=== PATIENT | male | born 1995 | race African-American/Black ===

== ENCOUNTER 2019-03-08 02:38 | Inpatient (IN) | payer OTHER ==
[2019-03-08] MEDS: SODIUM CHLORIDE 0.9% 1L BAG IV* (03:12)
[2019-03-08 03:17] LABS: ADD MAN DIFF? NO
[2019-03-08 03:19] LABS: ABNORMAL IP MESSAGE 1; BASOPHIL # 0.1 10^3/ul (0.0-0.1); BASOPHILS % 0.9 % (0.0-2.0); EOSINOPHILS # 0.2 10^3/ul (0.0-0.5); EOSINOPHILS % 1.1 % (0.0-7.0); HEMATOCRIT 36.2 % (42.0-52.0); HEMOGLOBIN 11.6 g/dl (14.0-18.0); LYMPHOCYTES # 2.5 10^3/ul (0.8-2.9); LYMPHOCYTES % 16.3 % (15.0-51.0); MEAN CORPUSCULAR HEMOGLOBIN 29.6 pg (29.0-33.0); MEAN CORPUSCULAR VOLUME 92.3 fl (82.0-101.0); MEAN PLATELET VOLUME 10.2 fl (7.4-10.4); MONOCYTE # 1.6 10^3/ul (0.3-0.9); MONOCYTES % 10.2 % (0.0-11.0); NEUTROPHIL # 10.7 10^3/ul (1.6-7.5); NEUTROPHILS % 70.7 % (39.0-77.0); PLATELET COUNT 429 10^3/UL (140-415); POSITIVE DIFF @See below; RED BLOOD COUNT 3.92 10^6/ul (4.70-6.10); RED CELL DISTRIBUTION WIDTH 15.5 % (11.5-14.5)
[2019-03-08 03:19] LABS: WHITE BLOOD COUNT 15.2 10^3/ul (4.8-10.8)
[2019-03-08] MEDS: ACETAMINOPHEN 650 MG SUPP PR (03:20)
[2019-03-08] MEDS: CEFEPIME 1GM/50 ML (PMX) 50 ML IVPB (03:20)
[2019-03-08 03:48] LABS: ALANINE AMINOTRANSFERASE 35 IU/L (13-69); ALBUMIN 4.1 g/dl (3.3-4.9); ALBUMIN/GLOBULIN RATIO 0.69; ALKALINE PHOSPHATASE 101 IU/L (42-121); ANION GAP 11 (5-13); ASPARTATE AMINO TRANSFERASE 34 IU/L (15-46); BILIRUBIN,INDIRECT 0.3 mg/dl (0-1.1); BILIRUBIN,TOTAL 0.3 mg/dl (0.2-1.3); BLOOD UREA NITROGEN 20 mg/dl (7-20); C-REACTIVE PROTEIN 2.9 mg/dl (0.0-0.9); CALCIUM 9.1 mg/dl (8.4-10.2); CARBON DIOXIDE 26 mmol/L (21-31); CHLORIDE 103 mmol/L (97-110); CREATININE 0.74 mg/dl (0.61-1.24); Estimated GFR > 60 mL/min (>60); GLUCOSE 126 mg/dl (70-220); LIPASE 16 U/L (23-300); POTASSIUM 4.8 mmol/L (3.5-5.1); SODIUM 140 mmol/L (135-144)
[2019-03-08 03:57] LABS: TROPONIN-I < 0.012 ng/ml (0.000-0.120)
[2019-03-08] MEDS ORDERED: NACL 0.9% 3 ML SYG IV (04:30)
[2019-03-08] MEDS ORDERED: ONDANSETRON 4 MG INJ IV (04:30)
[2019-03-08] MEDS: LACTATED RINGER'S 1,000 ML IV (04:43)
[2019-03-08] MEDS: SOD CHLORIDE 0.9% 1,000 ML IV ×3 (04:44→14:26)
[2019-03-08] MEDS: AZITHROMYCIN 500MG/NS (PMX) 250 ML IVPB (05:07)
[2019-03-08 05:10] LABS: INR 1.29; PROTIME 16.2 Sec (11.9-14.9); PT RATIO 1.3
[2019-03-08 05:11] LABS: PARTIAL THROMBOPLASTIN TIME 33.9 Sec (23.0-35.0)
[2019-03-08 05:20] LABS: AADO2 Arterial 558.6 mmHg (7.0-24.0); Arterial Base Excess -2.6 mmol/L (-3.0-3); Arterial Blood Gas Oxygen Sat 97.9 mmHG (95.0-98.0); Arterial COHb 0.3 % (0.0-3.0); Arterial Fraction of Oxyhgb 97.3 % (93.0-99.0); Arterial HCO3 22.1 mmol/L (22.0-26.0); Arterial MetHb 0.3 % (0.0-1.5); Arterial pCO2 37.5 mmhg (35-45); MODE VENT - AC; Site Right Brachial
[2019-03-08 06:07] LABS: ADD UMIC YES; UR ASCORBIC ACID 40 mg/dL (NEGATIVE); UR BACTERIA FEW /HPF (NONE SEEN); UR BILIRUBIN (Dip) NEGATIVE (NEGATIVE); UR BLOOD (Dip) NEGATIVE (NEGATIVE); UR CLARITY CLOUDY (CLEAR); UR COLOR YELLOW (YELLOW); UR GLUCOSE (Dip) NEGATIVE (NEGATIVE); UR KETONES (Dip) NEGATIVE (NEGATIVE); UR LEUKOCYTE ESTERASE (Dip) 3+ Leu/ul (NEGATIVE); UR MUCUS FEW /HPF (NONE SEEN); UR NITRITE (Dip) NEGATIVE (NEGATIVE); UR RBC 22 /HPF (0-5); UR SPECIFIC GRAVITY (Dip) 1.023 (1.003-1.030); UR TOTAL PROTEIN (Dip) NEGATIVE (NEGATIVE); UR UROBILINOGEN (Dip) NEGATIVE (NEGATIVE); UR WBC > 182 /HPF (0-5)
[2019-03-08 06:26] LABS: LACTIC ACID 1.9 mmol/L (0.5-2.0)
[2019-03-08] MEDS: FAMOTIDINE 20 MG INJ IV ×2 (08:40→21:27)
[2019-03-08] MEDS: ENOXAPARIN 40 MG/0.4 ML SYG SC (08:40)
[2019-03-08 09:12] LABS: LACTIC ACID 1.4 mmol/L (0.5-2.0)
[2019-03-08] MEDS ORDERED: IPRATROPIUM (NEB) 0.5 MG/2.5 ML AMP NEB (13:00)
[2019-03-08] MEDS: ALBUTEROL/IPRATROPIUM (NEB) 3 ML AMP HHN ×3 (13:00→19:27)
[2019-03-08] MEDS: NACL 3% FOR INHALATION 15 ML NEBU NEB (13:00)
[2019-03-08] MEDS ORDERED: VANCOMYCIN IV PER PHARMACY XX (13:00)
[2019-03-08] MEDS: DEXTROSE 5%-0.225% NACL 1,000 ML IV ×2 (13:30→21:27)
[2019-03-08] MEDS: metroNIDAZOLE 500 MG TAB GTB ×2 (14:26→21:26)
[2019-03-08] MEDS: PIPER-TAZO 3.375 GM IV (PMX) 100 ML IVPB ×3 (14:36→23:32)
[2019-03-08] MEDS ORDERED: LORAZEPAM 2 MG INJ (15:22)
[2019-03-08] MEDS: VANCOMYCIN HCL 1.25 GM in SOD CHLORIDE 0.9% 250 ML IVPB (15:40)
[2019-03-08] MEDS: LORAZEPAM 2 MG INJ IV ×2 (15:42→15:53)
[2019-03-08 16:35] LABS: AADO2 Arterial 511.5 mmHg (7.0-24.0); Allen Test ACCEPTAB; Arterial Base Excess 0.2 mmol/L (-3.0-3); Arterial Blood Gas Oxygen Sat 90.4 mmHG (95.0-98.0); Arterial COHb 0.3 % (0.0-3.0); Arterial Fraction of Oxyhgb 89.9 % (93.0-99.0); Arterial HCO3 23.5 mmol/L (22.0-26.0); Arterial MetHb 0.3 % (0.0-1.5); Arterial pCO2 33.3 mmhg (35-45); MODE VENT - AC; Site Left Radial
[2019-03-08] MEDS: ARTIFICIAL TEARS 15 ML OPH BOTH EYES ×2 (17:00→21:26)
[2019-03-08] MEDS: MIDAZOLAM (DRIP) 50 mg/50 mL 50 ML IV (17:19)
[2019-03-08] MEDS: ACETYLCYSTEINE 20% 4 ML VIAL NEB ×2 (17:25→19:27)
[2019-03-08] MEDS: LIDOCAINE 1% (MPF) 5 ML VIAL SC ×2 (18:25)
[2019-03-08] MEDS: ALBUTEROL 0.083% (NEB) 2.5 MG/3 ML AMP HHN (19:27)
[2019-03-08] MEDS: VALPROIC ACID LIQUID CUP 250 MG/5 ML CUP GTB (21:26)
[2019-03-08] MEDS: LEVETIRACETAM 500 MG TAB GTB (21:27)
[2019-03-08] MEDS: ASCORBIC ACID 500 MG TAB GTB (21:27)
[2019-03-08] MEDS: VANCOMYCIN 1 GM 250 ML IVPB (23:32)
[2019-03-09] MEDS: ACETYLCYSTEINE 20% 4 ML VIAL NEB ×4 (01:12→19:58)
[2019-03-09] MEDS: ALBUTEROL 0.083% (NEB) 2.5 MG/3 ML AMP HHN (01:12)
[2019-03-09] MEDS: ALBUTEROL/IPRATROPIUM (NEB) 3 ML AMP HHN ×6 (01:12→19:58)
[2019-03-09 04:56] LABS: ADD MAN DIFF? NO
[2019-03-09] MEDS: metroNIDAZOLE 500 MG TAB GTB (05:13)
[2019-03-09] MEDS: PIPER-TAZO 3.375 GM IV (PMX) 100 ML IVPB ×4 (05:14→23:00)
[2019-03-09 05:30] LABS: ANION GAP 8 (5-13); BLOOD UREA NITROGEN 14 mg/dl (7-20); CALCIUM 8.1 mg/dl (8.4-10.2); CARBON DIOXIDE 23 mmol/L (21-31); CHLORIDE 109 mmol/L (97-110); CREATININE 0.66 mg/dl (0.61-1.24); Estimated GFR > 60 mL/min (>60); GLUCOSE 99 mg/dl (70-220); PHOSPHORUS 3.4 mg/dl (2.5-4.9); POTASSIUM 4.1 mmol/L (3.5-5.1); SODIUM 140 mmol/L (135-144)
[2019-03-09 05:31] LABS: ALANINE AMINOTRANSFERASE 25 IU/L (13-69); ALBUMIN/GLOBULIN RATIO 0.65; ALKALINE PHOSPHATASE 70 IU/L (42-121); ANION GAP 10 (5-13); ASPARTATE AMINO TRANSFERASE 20 IU/L (15-46); BILIRUBIN,INDIRECT 0.5 mg/dl (0-1.1); BILIRUBIN,TOTAL 0.5 mg/dl (0.2-1.3); BLOOD UREA NITROGEN 13 mg/dl (7-20); CALCIUM 8.3 mg/dl (8.4-10.2); CARBON DIOXIDE 22 mmol/L (21-31); CHLORIDE 108 mmol/L (97-110); CHOLESTEROL 60 mg/dl (100-200); CREATININE 0.67 mg/dl (0.61-1.24); Estimated GFR > 60 mL/min (>60); GLUCOSE 103 mg/dl (70-220); HDL CHOLESTEROL 12 mg/dl (30-63); LDL CHOLESTEROL,CALCULATED 30 mg/dl; MAGNESIUM 1.9 mg/dl (1.7-2.5); POTASSIUM 3.8 mmol/L (3.5-5.1); SODIUM 140 mmol/L (135-144); TOTAL PROTEIN 7.6 g/dl (6.1-8.1); TRIGLYCERIDES 91 mg/dl (0-149)
[2019-03-09 05:33] LABS: VALPROATE 15 ug/ml (50-100)
[2019-03-09 05:59] LABS: THYROID STIMULATING HORMONE 0.465 MIU/L (0.465-4.680)
[2019-03-09] MEDS: VANCOMYCIN 1 GM 250 ML IVPB ×3 (06:18→22:59)
[2019-03-09 06:19] LABS: ADD MAN DIFF? NO
[2019-03-09] MEDS: MIDAZOLAM (DRIP) 50 mg/50 mL 50 ML IV (06:26)
[2019-03-09 06:39] LABS: WHITE BLOOD COUNT 8.8 10^3/ul (4.8-10.8)
[2019-03-09 06:39] LABS: BASOPHIL # 0.1 10^3/ul (0.0-0.1); BASOPHILS % 0.9 % (0.0-2.0); EOSINOPHILS # 0.4 10^3/ul (0.0-0.5); EOSINOPHILS % 4.5 % (0.0-7.0); HEMATOCRIT 25.3 % (42.0-52.0); HEMOGLOBIN 8.4 g/dl (14.0-18.0); LYMPHOCYTES # 1.7 10^3/ul (0.8-2.9); LYMPHOCYTES % 19.8 % (15.0-51.0); MEAN CORPUSCULAR HEMOGLOBIN 30.2 pg (29.0-33.0); MEAN CORPUSCULAR HGB CONC 33.2 g/dl (32.0-37.0); MEAN PLATELET VOLUME 10.5 fl (7.4-10.4); MONOCYTE # 0.9 10^3/ul (0.3-0.9); MONOCYTES % 9.9 % (0.0-11.0); NEUTROPHIL # 5.7 10^3/ul (1.6-7.5); NEUTROPHILS % 64.4 % (39.0-77.0); PLATELET COUNT 301 10^3/UL (140-415); RED BLOOD COUNT 2.78 10^6/ul (4.70-6.10); RED CELL DISTRIBUTION WIDTH 15.3 % (11.5-14.5)
[2019-03-09 07:46] LABS: AADO2 Arterial 629.5 mmHg (7.0-24.0); Allen Test ACCEPTAB; Arterial Base Excess -1.6 mmol/L (-3.0-3); Arterial Blood Gas Oxygen Sat 89.4 mmHG (95.0-98.0); Arterial COHb 0.3 % (0.0-3.0); Arterial HCO3 21.1 mmol/L (22.0-26.0); Arterial MetHb 0.2 % (0.0-1.5); Arterial pCO2 28.1 mmhg (35-45); MODE VENT - AC; Site Right Radial
[2019-03-09] MEDS: ACETAMINOPHEN 650 MG SUPP PR (08:05)
[2019-03-09] MEDS: LEVETIRACETAM 500 MG TAB GTB (08:17)
[2019-03-09] MEDS: VALPROIC ACID LIQUID CUP 250 MG/5 ML CUP GTB (08:18)
[2019-03-09] MEDS: ASCORBIC ACID 500 MG TAB GTB (09:00)
[2019-03-09] MEDS: CHOLECALCIFEROL 2,000 UNIT CAP GTB (09:00)
[2019-03-09] MEDS: ENOXAPARIN 40 MG/0.4 ML SYG SC (09:00)
[2019-03-09] MEDS: MULTIVITAMINS/MINERALS TAB GTB (09:00)
[2019-03-09] MEDS: FAMOTIDINE 20 MG INJ IV ×2 (09:00→21:04)
[2019-03-09] MEDS: LORAZEPAM 2 MG INJ IV ×5 (09:40→18:03)
[2019-03-09 10:09] LABS: BASOPHIL # 0.1 10^3/ul (0.0-0.1); BASOPHILS % 0.6 % (0.0-2.0); EOSINOPHILS # 0.3 10^3/ul (0.0-0.5); EOSINOPHILS % 3.6 % (0.0-7.0); HEMATOCRIT 24.9 % (42.0-52.0); HEMOGLOBIN 7.9 g/dl (14.0-18.0); LYMPHOCYTES # 1.8 10^3/ul (0.8-2.9); LYMPHOCYTES % 20.5 % (15.0-51.0); MEAN CORPUSCULAR HEMOGLOBIN 29.4 pg (29.0-33.0); MEAN CORPUSCULAR HGB CONC 31.7 g/dl (32.0-37.0); MEAN CORPUSCULAR VOLUME 92.6 fl (82.0-101.0); MEAN PLATELET VOLUME 10.8 fl (7.4-10.4); MONOCYTE # 0.8 10^3/ul (0.3-0.9); MONOCYTES % 8.9 % (0.0-11.0); NEUTROPHIL # 5.9 10^3/ul (1.6-7.5); NEUTROPHILS % 66.1 % (39.0-77.0); PLATELET COUNT 294 10^3/UL (140-415); RED BLOOD COUNT 2.69 10^6/ul (4.70-6.10); RED CELL DISTRIBUTION WIDTH 15.6 % (11.5-14.5)
[2019-03-09] MEDS: ARTIFICIAL TEARS 15 ML OPH BOTH EYES ×4 (10:58→21:04)
[2019-03-09] MEDS: LEVETIRACETAM 1500 MG (PMX) 100 ML IVPB ×2 (12:12→21:07)
[2019-03-09] MEDS: VALPROATE INJ 1,000 MG in SOD CHLORIDE 0.9% 100 ML IVPB ×2 (14:32→21:11)
[2019-03-09 15:02] LABS: VALPROATE 16 ug/ml (50-100)
[2019-03-09 15:03] LABS: VANCOMYCIN,TROUGH 16.4 ug/ml (10.0-20.0)
[2019-03-09] MEDS: VALPROATE INJ 125 MG in SOD CHLORIDE 0.9% 50 ML IVPB ×2 (15:35→21:04)
[2019-03-09] MEDS: DEXTROSE 5%-0.225% NACL 1,000 ML IV (15:38)
[2019-03-09] MEDS: LORAZEPAM 1 MG TAB PO (18:04)
[2019-03-09] MEDS: LORAZEPAM 2 MG INJ IM (18:32)
[2019-03-09 18:58] LABS: VALPROATE 38 ug/ml (50-100)
[2019-03-09] MEDS ORDERED: LEVETIRACETAM 1000 MG (PMX) 100 ML IVPB (21:00)
[2019-03-10] MEDS: ALBUTEROL/IPRATROPIUM (NEB) 3 ML AMP HHN ×6 (01:13→21:11)
[2019-03-10] MEDS: ACETYLCYSTEINE 20% 4 ML VIAL NEB ×3 (01:13→13:12)
[2019-03-10] MEDS: DEXTROSE 5%-0.225% NACL 1,000 ML IV ×3 (03:47→21:43)
[2019-03-10 05:18] LABS: ADD MAN DIFF? NO
[2019-03-10 05:23] LABS: WHITE BLOOD COUNT 11.3 10^3/ul (4.8-10.8)
[2019-03-10 05:23] LABS: BASOPHIL # 0.1 10^3/ul (0.0-0.1); BASOPHILS % 0.5 % (0.0-2.0); EOSINOPHILS # 0.3 10^3/ul (0.0-0.5); EOSINOPHILS % 2.4 % (0.0-7.0); HEMOGLOBIN 7.2 g/dl (14.0-18.0); LYMPHOCYTES # 1.6 10^3/ul (0.8-2.9); LYMPHOCYTES % 13.8 % (15.0-51.0); MEAN CORPUSCULAR HEMOGLOBIN 30.1 pg (29.0-33.0); MEAN CORPUSCULAR HGB CONC 32.7 g/dl (32.0-37.0); MEAN CORPUSCULAR VOLUME 92.1 fl (82.0-101.0); MEAN PLATELET VOLUME 10.8 fl (7.4-10.4); MONOCYTE # 1.2 10^3/ul (0.3-0.9); MONOCYTES % 10.8 % (0.0-11.0); NEUTROPHIL # 8.1 10^3/ul (1.6-7.5); NEUTROPHILS % 72.1 % (39.0-77.0); PLATELET COUNT 237 10^3/UL (140-415); RED BLOOD COUNT 2.39 10^6/ul (4.70-6.10); RED CELL DISTRIBUTION WIDTH 15.2 % (11.5-14.5)
[2019-03-10 05:41] LABS: ANION GAP 9 (5-13); BLOOD UREA NITROGEN 7 mg/dl (7-20); CALCIUM 8.1 mg/dl (8.4-10.2); CARBON DIOXIDE 22 mmol/L (21-31); CHLORIDE 111 mmol/L (97-110); CREATININE 0.66 mg/dl (0.61-1.24); Estimated GFR > 60 mL/min (>60); GLUCOSE 113 mg/dl (70-220); MAGNESIUM 1.9 mg/dl (1.7-2.5); PHOSPHORUS 3.7 mg/dl (2.5-4.9); POTASSIUM 3.7 mmol/L (3.5-5.1); SODIUM 142 mmol/L (135-144)
[2019-03-10 05:45] LABS: VALPROATE 59 ug/ml (50-100)
[2019-03-10] MEDS: VALPROATE INJ 125 MG in SOD CHLORIDE 0.9% 50 ML IVPB ×3 (06:04→21:32)
[2019-03-10] MEDS: PIPER-TAZO 3.375 GM IV (PMX) 100 ML IVPB ×4 (06:04→23:41)
[2019-03-10] MEDS: VANCOMYCIN 1 GM 250 ML IVPB ×3 (06:05→22:52)
[2019-03-10] MEDS: ARTIFICIAL TEARS 15 ML OPH BOTH EYES ×4 (09:47→20:24)
[2019-03-10] MEDS: FAMOTIDINE 20 MG INJ IV ×2 (09:47→20:24)
[2019-03-10] MEDS: SOD CHLORIDE 0.9% 1,000 ML IV (09:47)
[2019-03-10] MEDS: LEVETIRACETAM 1000 MG (PMX) 100 ML IVPB ×2 (09:51→20:32)
[2019-03-10] MEDS: ENOXAPARIN 40 MG/0.4 ML SYG SC (09:54)
[2019-03-10] MEDS: LORAZEPAM 2 MG INJ IV ×2 (10:21→11:30)
[2019-03-10] MEDS: VALPROATE INJ 1,000 MG in SOD CHLORIDE 0.9% 100 ML IVPB (10:29)
[2019-03-10] MEDS ORDERED: LORAZEPAM 2 MG INJ IV (11:00)
[2019-03-11] MEDS: IPRATROPIUM (HFA) 12.9 GM INHALER INH ×6 (01:03→21:22)
[2019-03-11] MEDS: ALBUTEROL HFA 8 GM INHALER INH ×6 (01:03→21:23)
[2019-03-11] MEDS: VALPROATE INJ 125 MG in SOD CHLORIDE 0.9% 50 ML IVPB (05:29)
[2019-03-11] MEDS: PIPER-TAZO 3.375 GM IV (PMX) 100 ML IVPB (05:30)
[2019-03-11 05:52] LABS: ADD MAN DIFF? NO
[2019-03-11 06:03] LABS: WHITE BLOOD COUNT 8.7 10^3/ul (4.8-10.8)
[2019-03-11 06:03] LABS: ABNORMAL IP MESSAGE 1; BASOPHILS % 0.5 % (0.0-2.0); EOSINOPHILS # 0.3 10^3/ul (0.0-0.5); LYMPHOCYTES # 1.4 10^3/ul (0.8-2.9); LYMPHOCYTES % 16.3 % (15.0-51.0); MEAN CORPUSCULAR HEMOGLOBIN 30.2 pg (29.0-33.0); MEAN CORPUSCULAR HGB CONC 32.4 g/dl (32.0-37.0); MEAN CORPUSCULAR VOLUME 93.3 fl (82.0-101.0); MEAN PLATELET VOLUME 10.9 fl (7.4-10.4); MONOCYTES % 10.9 % (0.0-11.0); PLATELET COUNT 234 10^3/UL (140-415); POSITIVE DIFF @See below; RED BLOOD COUNT 2.25 10^6/ul (4.70-6.10); RED CELL DISTRIBUTION WIDTH 15.6 % (11.5-14.5)
[2019-03-11] MEDS: ACETAMINOPHEN 650 MG SUPP PR (06:13)
[2019-03-11 06:36] LABS: HEMOGLOBIN 6.8 g/dl (14.0-18.0)
[2019-03-11] MEDS: VANCOMYCIN 1 GM 250 ML IVPB ×3 (06:37→23:49)
[2019-03-11 07:05] LABS: ANION GAP 9 (5-13); BLOOD UREA NITROGEN 5 mg/dl (7-20); CALCIUM 8.2 mg/dl (8.4-10.2); CARBON DIOXIDE 22 mmol/L (21-31); CHLORIDE 115 mmol/L (97-110); CREATININE 1.29 mg/dl (0.61-1.24); Estimated GFR > 60 mL/min (>60); GLUCOSE 94 mg/dl (70-220); POTASSIUM 3.6 mmol/L (3.5-5.1); SODIUM 146 mmol/L (135-144)
[2019-03-11 07:54] LABS: VALPROATE 46 ug/ml (50-100)
[2019-03-11] MEDS: LORAZEPAM 2 MG INJ IV ×2 (07:55→11:46)
[2019-03-11 08:05] LABS: ANISOCYTOSIS 3+ (0-0); BAND NEUTROPHILS #M 0.2 10^3/ul (0.0-0.6); BAND NEUTROPHILS % (M) 3 % (0-4); EOSINOPHILS % (M) 6 % (0-7); GIANT THROMBO% (M) 2 % (0-0); LYMPHOCYTES #M 0.8 10^3/ul (0.8-2.9); LYMPHOCYTES % (M) 10 % (15-51); MICROCYTOSIS 2+ (0-0); MONOCYTE #M 1.2 10^3/ul (0.3-0.9); MONOCYTES % (M) 14 % (0-11); PLATELET ESTIMATE NORMAL; POIKILOCYTOSIS 3+ (0-0); POLYCHROMASIA 3+ (0-0); SEG NEUT #M 5.8 10^3/ul (1.6-7.5); SEGMENTED NEUTROPHILS (M) % 67 % (39-77); SMUDGE%M 3 % (0-0)
[2019-03-11] MEDS: FAMOTIDINE 20 MG INJ IV ×2 (08:53→20:57)
[2019-03-11] MEDS: LEVETIRACETAM 1000 MG (PMX) 100 ML IVPB ×2 (08:53→20:57)
[2019-03-11] MEDS: ENOXAPARIN 40 MG/0.4 ML SYG SC (11:30)
[2019-03-11] MEDS: VALPROATE INJ 1,500 MG in SOD CHLORIDE 0.9% 100 ML IVPB (11:41)
[2019-03-11] MEDS: DEXTROSE 5%-0.225% NACL 1,000 ML IV ×2 (12:47→22:27)
[2019-03-11] MEDS: ARTIFICIAL TEARS 15 ML OPH BOTH EYES ×4 (12:52→20:57)
[2019-03-11 14:13] LABS: IMMEDIATE SPIN CROSSMATCH 1 5
[2019-03-11] MEDS: CEFTAZIDIME 1GM/50 ML (PMX) 50 ML IVPB ×2 (14:26→22:27)
[2019-03-11] MEDS: VALPROATE INJ 250 MG in SOD CHLORIDE 0.9% 50 ML IVPB ×2 (15:05→22:27)
[2019-03-11 15:21] LABS: VANCOMYCIN,TROUGH 25.7 ug/ml (10.0-20.0)
[2019-03-12] MEDS: ALBUTEROL HFA 8 GM INHALER INH ×6 (01:10→20:37)
[2019-03-12] MEDS: IPRATROPIUM (HFA) 12.9 GM INHALER INH ×6 (01:10→20:37)
[2019-03-12 05:10] LABS: AADO2 Arterial 403.9 mmHg (7.0-24.0); Allen Test ACCEPTAB; Arterial Base Excess 0.6 mmol/L (-3.0-3); Arterial Blood Gas Oxygen Sat 89.2 mmHG (95.0-98.0); Arterial COHb 0.1 % (0.0-3.0); Arterial Fraction of Oxyhgb 88.9 % (93.0-99.0); Arterial HCO3 24.3 mmol/L (22.0-26.0); Arterial MetHb 0.2 % (0.0-1.5); Arterial pCO2 35.3 mmhg (35-45); MODE VENT - AC; Site Right Radial
[2019-03-12 05:21] LABS: ADD MAN DIFF? NO
[2019-03-12 05:27] LABS: BASOPHILS % 0.3 % (0.0-2.0); EOSINOPHILS # 0.3 10^3/ul (0.0-0.5); EOSINOPHILS % 2.6 % (0.0-7.0); HEMATOCRIT 24.2 % (42.0-52.0); HEMOGLOBIN 7.8 g/dl (14.0-18.0); LYMPHOCYTES % 10.2 % (15.0-51.0); MEAN CORPUSCULAR HEMOGLOBIN 30.5 pg (29.0-33.0); MEAN CORPUSCULAR HGB CONC 32.2 g/dl (32.0-37.0); MEAN CORPUSCULAR VOLUME 94.5 fl (82.0-101.0); MEAN PLATELET VOLUME 11.2 fl (7.4-10.4); MONOCYTE # 0.9 10^3/ul (0.3-0.9); MONOCYTES % 8.4 % (0.0-11.0); NEUTROPHIL # 7.9 10^3/ul (1.6-7.5); NEUTROPHILS % 78.1 % (39.0-77.0); PLATELET COUNT 239 10^3/UL (140-415); RED BLOOD COUNT 2.56 10^6/ul (4.70-6.10)
[2019-03-12 05:27] LABS: WHITE BLOOD COUNT 10.1 10^3/ul (4.8-10.8)
[2019-03-12 05:27] LABS: LACTIC ACID 1.4 mmol/L (0.5-2.0)
[2019-03-12 05:44] LABS: VALPROATE 68 ug/ml (50-100)
[2019-03-12 06:01] LABS: ANION GAP 10 (5-13); BLOOD UREA NITROGEN 4 mg/dl (7-20); CARBON DIOXIDE 21 mmol/L (21-31); CHLORIDE 119 mmol/L (97-110); CREATININE 1.17 mg/dl (0.61-1.24); Estimated GFR > 60 mL/min (>60); GLUCOSE 80 mg/dl (70-220); POTASSIUM 3.4 mmol/L (3.5-5.1); SODIUM 150 mmol/L (135-144)
[2019-03-12] MEDS: VALPROATE INJ 250 MG in SOD CHLORIDE 0.9% 50 ML IVPB ×3 (06:25→22:55)
[2019-03-12] MEDS: CEFTAZIDIME 1GM/50 ML (PMX) 50 ML IVPB ×3 (06:25→21:57)
[2019-03-12] MEDS: LEVETIRACETAM 1000 MG (PMX) 100 ML IVPB ×2 (09:10→20:06)
[2019-03-12] MEDS: ARTIFICIAL TEARS 15 ML OPH BOTH EYES ×4 (09:10→20:06)
[2019-03-12] MEDS: DEXTROSE 5%-0.225% NACL 1,000 ML IV (09:11)
[2019-03-12] MEDS: FAMOTIDINE 20 MG INJ IV ×2 (09:34→20:06)
[2019-03-12 10:53] LABS: PLATELET COUNT 233 10^3/UL (140-415)
[2019-03-12 11:15] LABS: INR 1.54; PARTIAL THROMBOPLASTIN TIME 47.9 Sec (23.0-35.0); PROTIME 18.6 Sec (11.9-14.9); PT RATIO 1.5; THROMBIN TIME 15.7 SEC (13.8-19.1)
[2019-03-12] MEDS: VANCOMYCIN 1 GM 250 ML IVPB (11:36)
[2019-03-12] MEDS: POTASSIUM CHLORIDE 100 ML IVPB ×2 (13:31→15:51)
[2019-03-12] MEDS ORDERED: LIDOCAINE 1% (MDV) 20 ML INJ (15:26)
[2019-03-12] MEDS: LORAZEPAM 2 MG INJ IV (15:31)
[2019-03-12] MEDS: LIDOCAINE 1% (MDV) 20 ML INJ SC (15:52)
[2019-03-12] MEDS: VALPROATE INJ 1,500 MG in SOD CHLORIDE 0.9% 100 ML IVPB (18:44)
[2019-03-13] MEDS: VANCOMYCIN 1 GM 250 ML IVPB ×2 (00:34→12:14)
[2019-03-13] MEDS: ALBUTEROL HFA 8 GM INHALER INH ×6 (01:21→21:01)
[2019-03-13] MEDS: IPRATROPIUM (HFA) 12.9 GM INHALER INH ×6 (01:21→21:01)
[2019-03-13] MEDS: DEXTROSE 5%-0.225% NACL 1,000 ML IV ×3 (02:48→20:25)
[2019-03-13] MEDS: LORAZEPAM 2 MG INJ IV (04:35)
[2019-03-13] MEDS: CEFTAZIDIME 1GM/50 ML (PMX) 50 ML IVPB ×3 (05:09→21:50)
[2019-03-13] MEDS: VALPROATE INJ 250 MG in SOD CHLORIDE 0.9% 50 ML IVPB ×3 (05:28→22:24)
[2019-03-13 05:29] LABS: ADD MAN DIFF? NO
[2019-03-13 05:34] LABS: BASOPHILS % 0.4 % (0.0-2.0); EOSINOPHILS # 0.2 10^3/ul (0.0-0.5); EOSINOPHILS % 2.7 % (0.0-7.0); HEMATOCRIT 23.1 % (42.0-52.0); HEMOGLOBIN 7.3 g/dl (14.0-18.0); LYMPHOCYTES # 1.1 10^3/ul (0.8-2.9); LYMPHOCYTES % 12.1 % (15.0-51.0); MEAN CORPUSCULAR HEMOGLOBIN 29.7 pg (29.0-33.0); MEAN CORPUSCULAR HGB CONC 31.6 g/dl (32.0-37.0); MEAN CORPUSCULAR VOLUME 93.9 fl (82.0-101.0); MONOCYTE # 0.8 10^3/ul (0.3-0.9); MONOCYTES % 8.8 % (0.0-11.0); NEUTROPHIL # 6.8 10^3/ul (1.6-7.5); NEUTROPHILS % 75.7 % (39.0-77.0); PLATELET COUNT 235 10^3/UL (140-415); RED BLOOD COUNT 2.46 10^6/ul (4.70-6.10); RED CELL DISTRIBUTION WIDTH 16.1 % (11.5-14.5)
[2019-03-13 06:03] LABS: VALPROATE 80 ug/ml (50-100)
[2019-03-13 06:38] LABS: ANION GAP 7 (5-13); BLOOD UREA NITROGEN 5 mg/dl (7-20); CALCIUM 8.4 mg/dl (8.4-10.2); CARBON DIOXIDE 24 mmol/L (21-31); CHLORIDE 121 mmol/L (97-110); Estimated GFR > 60 mL/min (>60); GLUCOSE 87 mg/dl (70-220); PHOSPHORUS 3.8 mg/dl (2.5-4.9); POTASSIUM 3.4 mmol/L (3.5-5.1); SODIUM 152 mmol/L (135-144)
[2019-03-13] MEDS: LEVETIRACETAM 1000 MG (PMX) 100 ML IVPB ×2 (08:58→20:25)
[2019-03-13] MEDS: FAMOTIDINE 20 MG INJ IV ×2 (08:58→20:25)
[2019-03-13] MEDS: ARTIFICIAL TEARS 15 ML OPH BOTH EYES ×4 (08:59→20:25)
[2019-03-13 11:58] LABS: VANCOMYCIN,TROUGH 18.4 ug/ml (10.0-20.0)
[2019-03-13] MEDS: POTASSIUM CHLORIDE 100 ML IVPB ×2 (13:57→16:10)
[2019-03-14] MEDS: VANCOMYCIN 750 MG (PMX) 250 ML IVPB ×3 (00:11→23:48)
[2019-03-14] MEDS: DEXTROSE 5%-0.225% NACL 1,000 ML IV (01:28)
[2019-03-14] MEDS: IPRATROPIUM (HFA) 12.9 GM INHALER INH ×6 (02:23→19:42)
[2019-03-14] MEDS: ALBUTEROL HFA 8 GM INHALER INH ×6 (02:23→19:41)
[2019-03-14 05:08] LABS: ADD MAN DIFF? NO
[2019-03-14 05:19] LABS: WHITE BLOOD COUNT 7.7 10^3/ul (4.8-10.8)
[2019-03-14 05:19] LABS: ABNORMAL IP MESSAGE 1; BASOPHILS % 0.3 % (0.0-2.0); EOSINOPHILS # 0.2 10^3/ul (0.0-0.5); HEMATOCRIT 21.7 % (42.0-52.0); LYMPHOCYTES # 0.9 10^3/ul (0.8-2.9); LYMPHOCYTES % 12.2 % (15.0-51.0); MEAN CORPUSCULAR HEMOGLOBIN 29.2 pg (29.0-33.0); MEAN CORPUSCULAR HGB CONC 31.8 g/dl (32.0-37.0); MEAN CORPUSCULAR VOLUME 91.9 fl (82.0-101.0); MEAN PLATELET VOLUME 11.3 fl (7.4-10.4); MONOCYTE # 0.7 10^3/ul (0.3-0.9); MONOCYTES % 9.3 % (0.0-11.0); NEUTROPHIL # 5.8 10^3/ul (1.6-7.5); NEUTROPHILS % 74.8 % (39.0-77.0); PLATELET COUNT 202 10^3/UL (140-415); POSITIVE DIFF @See below; RED BLOOD COUNT 2.36 10^6/ul (4.70-6.10); RED CELL DISTRIBUTION WIDTH 17.8 % (11.5-14.5)
[2019-03-14] MEDS: CEFTAZIDIME 1GM/50 ML (PMX) 50 ML IVPB ×3 (06:09→22:19)
[2019-03-14 06:29] LABS: HEMOGLOBIN 6.9 g/dl (14.0-18.0)
[2019-03-14] MEDS: VALPROATE INJ 250 MG in SOD CHLORIDE 0.9% 50 ML IVPB ×3 (06:51→22:59)
[2019-03-14 06:55] LABS: ANION GAP 6 (5-13); BLOOD UREA NITROGEN 6 mg/dl (7-20); CALCIUM 8.3 mg/dl (8.4-10.2); CARBON DIOXIDE 24 mmol/L (21-31); CHLORIDE 123 mmol/L (97-110); CREATININE 1.21 mg/dl (0.61-1.24); Estimated GFR > 60 mL/min (>60); GLUCOSE 89 mg/dl (70-220); MAGNESIUM 2.1 mg/dl (1.7-2.5); PHOSPHORUS 3.8 mg/dl (2.5-4.9); POTASSIUM 3.5 mmol/L (3.5-5.1); SODIUM 153 mmol/L (135-144)
[2019-03-14 07:53] LABS: VALPROATE 54 ug/ml (50-100)
[2019-03-14] MEDS: LEVETIRACETAM 1000 MG (PMX) 100 ML IVPB ×2 (08:21→21:18)
[2019-03-14] MEDS: ARTIFICIAL TEARS 15 ML OPH BOTH EYES ×4 (08:22→21:18)
[2019-03-14] MEDS: FAMOTIDINE 20 MG INJ IV ×2 (08:22→21:18)
[2019-03-14 15:26] LABS: HEMOGLOBIN 9.6 g/dl (14.0-18.0)
[2019-03-15] MEDS: IPRATROPIUM (HFA) 12.9 GM INHALER INH ×6 (01:43→21:27)
[2019-03-15] MEDS: ALBUTEROL HFA 8 GM INHALER INH ×6 (01:43→21:27)
[2019-03-15] MEDS: ACETAMINOPHEN 650MG/20.3ML CUP GTB ×2 (04:56→11:15)
[2019-03-15] MEDS: CEFTAZIDIME 1GM/50 ML (PMX) 50 ML IVPB ×3 (05:04→21:48)
[2019-03-15 05:32] LABS: ADD MAN DIFF? NO
[2019-03-15 05:35] LABS: ABNORMAL IP MESSAGE 1; BASOPHILS % 0.4 % (0.0-2.0); EOSINOPHILS # 0.3 10^3/ul (0.0-0.5); EOSINOPHILS % 2.8 % (0.0-7.0); HEMATOCRIT 34.3 % (42.0-52.0); HEMOGLOBIN 10.7 g/dl (14.0-18.0); LYMPHOCYTES # 1.1 10^3/ul (0.8-2.9); LYMPHOCYTES % 10.5 % (15.0-51.0); MEAN CORPUSCULAR HEMOGLOBIN 27.2 pg (29.0-33.0); MEAN CORPUSCULAR HGB CONC 31.2 g/dl (32.0-37.0); MEAN CORPUSCULAR VOLUME 87.1 fl (82.0-101.0); MEAN PLATELET VOLUME 10.5 fl (7.4-10.4); MONOCYTE # 0.9 10^3/ul (0.3-0.9); MONOCYTES % 8.6 % (0.0-11.0); NEUTROPHIL # 8.3 10^3/ul (1.6-7.5); NEUTROPHILS % 77.3 % (39.0-77.0); PLATELET COUNT 215 10^3/UL (140-415); POSITIVE DIFF @See below; RED BLOOD COUNT 3.94 10^6/ul (4.70-6.10); RED CELL DISTRIBUTION WIDTH 23.9 % (11.5-14.5)
[2019-03-15 05:35] LABS: WHITE BLOOD COUNT 10.8 10^3/ul (4.8-10.8)
[2019-03-15] MEDS: VALPROATE INJ 250 MG in SOD CHLORIDE 0.9% 50 ML IVPB (05:45)
[2019-03-15 05:51] LABS: ANION GAP 6 (5-13); BLOOD UREA NITROGEN 7 mg/dl (7-20); CALCIUM 8.4 mg/dl (8.4-10.2); CARBON DIOXIDE 24 mmol/L (21-31); CHLORIDE 123 mmol/L (97-110); CREATININE 1.13 mg/dl (0.61-1.24); Estimated GFR > 60 mL/min (>60); GLUCOSE 94 mg/dl (70-220); MAGNESIUM 2.1 mg/dl (1.7-2.5); PHOSPHORUS 3.2 mg/dl (2.5-4.9); POTASSIUM 3.4 mmol/L (3.5-5.1); SODIUM 153 mmol/L (135-144)
[2019-03-15] MEDS: POTASSIUM CHLORIDE 100 ML IVPB (06:43)
[2019-03-15] MEDS: LEVETIRACETAM 1000 MG (PMX) 100 ML IVPB ×2 (08:08→20:53)
[2019-03-15] MEDS: FAMOTIDINE 20 MG INJ IV ×2 (08:09→20:54)
[2019-03-15] MEDS: ARTIFICIAL TEARS 15 ML OPH BOTH EYES ×4 (08:09→20:53)
[2019-03-15] MEDS: VALPROATE INJ 500 MG in SOD CHLORIDE 0.9% 50 ML IVPB ×2 (09:37→20:53)
[2019-03-15] MEDS: CIPROFLOXACIN 0.3% 2.5 ML OPH BOTH EYES ×2 (09:37→20:53)
[2019-03-15 11:46] LABS: VANCOMYCIN,TROUGH 19.6 ug/ml (10.0-20.0)
[2019-03-15] MEDS: VALPROATE INJ 1,000 MG in SOD CHLORIDE 0.9% 100 ML IVPB (11:50)
[2019-03-15] MEDS: VANCOMYCIN 750 MG (PMX) 250 ML IVPB (12:55)
[2019-03-15] MEDS: LORAZEPAM 2 MG INJ IV (14:43)
[2019-03-16] MEDS: IPRATROPIUM (HFA) 12.9 GM INHALER INH ×6 (01:24→20:59)
[2019-03-16] MEDS: ALBUTEROL HFA 8 GM INHALER INH ×6 (01:24→20:59)
[2019-03-16] MEDS: CEFTAZIDIME 1GM/50 ML (PMX) 50 ML IVPB (05:41)
[2019-03-16 06:06] LABS: VALPROATE 66 ug/ml (50-100)
[2019-03-16] MEDS: FAMOTIDINE 20 MG INJ IV ×2 (08:03→21:22)
[2019-03-16] MEDS: LEVETIRACETAM 1000 MG (PMX) 100 ML IVPB ×2 (08:04→21:23)
[2019-03-16] MEDS: ARTIFICIAL TEARS 15 ML OPH BOTH EYES ×4 (08:04→21:22)
[2019-03-16] MEDS: VALPROATE INJ 500 MG in SOD CHLORIDE 0.9% 50 ML IVPB ×2 (08:04→21:23)
[2019-03-16] MEDS: CIPROFLOXACIN 0.3% 2.5 ML OPH BOTH EYES ×2 (08:04→21:22)
[2019-03-16] MEDS: VALPROATE INJ 1,500 MG in SOD CHLORIDE 0.9% 100 ML IVPB (10:00)
[2019-03-16 10:52] LABS: ADD MAN DIFF? NO
[2019-03-16 10:55] LABS: WHITE BLOOD COUNT 9.6 10^3/ul (4.8-10.8)
[2019-03-16 10:55] LABS: ABNORMAL IP MESSAGE 1; BASOPHILS % 0.4 % (0.0-2.0); EOSINOPHILS # 0.2 10^3/ul (0.0-0.5); EOSINOPHILS % 2.5 % (0.0-7.0); HEMATOCRIT 32.4 % (42.0-52.0); LYMPHOCYTES # 1.3 10^3/ul (0.8-2.9); LYMPHOCYTES % 13.9 % (15.0-51.0); MEAN CORPUSCULAR HEMOGLOBIN 27.5 pg (29.0-33.0); MEAN CORPUSCULAR HGB CONC 30.9 g/dl (32.0-37.0); MEAN CORPUSCULAR VOLUME 89.3 fl (82.0-101.0); MEAN PLATELET VOLUME 11.2 fl (7.4-10.4); MONOCYTES % 10.6 % (0.0-11.0); NEUTROPHIL # 6.9 10^3/ul (1.6-7.5); NEUTROPHILS % 72.1 % (39.0-77.0); PLATELET COUNT 263 10^3/UL (140-415); POSITIVE DIFF @See below; RED BLOOD COUNT 3.63 10^6/ul (4.70-6.10); RED CELL DISTRIBUTION WIDTH 23.4 % (11.5-14.5)
[2019-03-16 11:02] LABS: ANION GAP 6 (5-13); BLOOD UREA NITROGEN 9 mg/dl (7-20); CALCIUM 8.2 mg/dl (8.4-10.2); CARBON DIOXIDE 25 mmol/L (21-31); CHLORIDE 125 mmol/L (97-110); CREATININE 1.16 mg/dl (0.61-1.24); Estimated GFR > 60 mL/min (>60); GLUCOSE 73 mg/dl (70-220); POTASSIUM 3.6 mmol/L (3.5-5.1); SODIUM 156 mmol/L (135-144)
[2019-03-16 11:27] LABS: MAGNESIUM 2.2 mg/dl (1.7-2.5)
[2019-03-16 11:27] LABS: PHOSPHORUS 3.3 mg/dl (2.5-4.9)
[2019-03-16] MEDS ORDERED: AMIKACIN IV PER PHARMACY XX (12:30)
[2019-03-16] MEDS ORDERED: VANCOMYCIN 1 GM 250 ML IVPB (14:00)
[2019-03-16] MEDS: AMIKACIN 1,000 MG in SOD CHLORIDE 0.9% 250 ML IVPB (15:46)
[2019-03-16] MEDS: SOD CHLORIDE 0.9% 1,000 ML IV (17:04)
[2019-03-16] MEDS: DOXYCYCLINE 100 MG in SOD CHLORIDE 0.9% 250 ML IVPB (21:23)
[2019-03-17] MEDS: IPRATROPIUM (HFA) 12.9 GM INHALER INH ×6 (00:55→21:11)
[2019-03-17] MEDS: ALBUTEROL HFA 8 GM INHALER INH ×6 (00:55→21:11)
[2019-03-17 05:52] LABS: ADD MAN DIFF? NO
[2019-03-17 05:55] LABS: WHITE BLOOD COUNT 10.2 10^3/ul (4.8-10.8)
[2019-03-17 05:55] LABS: ABNORMAL IP MESSAGE 1; BASOPHILS % 0.4 % (0.0-2.0); EOSINOPHILS # 0.5 10^3/ul (0.0-0.5); EOSINOPHILS % 4.7 % (0.0-7.0); HEMATOCRIT 35.1 % (42.0-52.0); HEMOGLOBIN 10.9 g/dl (14.0-18.0); LYMPHOCYTES # 1.6 10^3/ul (0.8-2.9); LYMPHOCYTES % 15.2 % (15.0-51.0); MEAN CORPUSCULAR HEMOGLOBIN 27.5 pg (29.0-33.0); MEAN CORPUSCULAR HGB CONC 31.1 g/dl (32.0-37.0); MEAN CORPUSCULAR VOLUME 88.4 fl (82.0-101.0); MEAN PLATELET VOLUME 10.7 fl (7.4-10.4); NEUTROPHIL # 7.1 10^3/ul (1.6-7.5); NEUTROPHILS % 69.3 % (39.0-77.0); PLATELET COUNT 283 10^3/UL (140-415); POSITIVE DIFF @See below; RED BLOOD COUNT 3.97 10^6/ul (4.70-6.10); RED CELL DISTRIBUTION WIDTH 22.6 % (11.5-14.5)
[2019-03-17 06:15] LABS: ANION GAP 5 (5-13); BLOOD UREA NITROGEN 13 mg/dl (7-20); CALCIUM 8.4 mg/dl (8.4-10.2); CARBON DIOXIDE 30 mmol/L (21-31); CHLORIDE 125 mmol/L (97-110); CREATININE 1.03 mg/dl (0.61-1.24); Estimated GFR > 60 mL/min (>60); GLUCOSE 86 mg/dl (70-220); POTASSIUM 3.9 mmol/L (3.5-5.1); SODIUM 160 mmol/L (135-144)
[2019-03-17] MEDS: LEVETIRACETAM 1000 MG (PMX) 100 ML IVPB ×2 (08:16→21:48)
[2019-03-17] MEDS: DOXYCYCLINE 100 MG in SOD CHLORIDE 0.9% 250 ML IVPB ×2 (08:21→22:41)
[2019-03-17] MEDS: CIPROFLOXACIN 0.3% 2.5 ML OPH BOTH EYES (08:22)
[2019-03-17] MEDS: FAMOTIDINE 20 MG INJ IV ×2 (08:22→21:47)
[2019-03-17] MEDS: ARTIFICIAL TEARS 15 ML OPH BOTH EYES ×3 (08:22→17:50)
[2019-03-17] MEDS: VALPROATE INJ 500 MG in SOD CHLORIDE 0.9% 50 ML IVPB ×2 (08:24→21:47)
[2019-03-17] MEDS: SOD CHLORIDE 0.9% 1,000 ML IV (12:17)
[2019-03-17] MEDS: DEXTROSE 5% 1,000 ML IV ×2 (12:17→21:47)
[2019-03-17] MEDS: ACETAMINOPHEN 650MG/20.3ML CUP GTB (12:46)
[2019-03-17 14:43] LABS: ANION GAP 4 (5-13); BLOOD UREA NITROGEN 14 mg/dl (7-20); CALCIUM 8.2 mg/dl (8.4-10.2); CARBON DIOXIDE 27 mmol/L (21-31); CHLORIDE 125 mmol/L (97-110); Estimated GFR > 60 mL/min (>60); GLUCOSE 123 mg/dl (70-220); POTASSIUM 3.3 mmol/L (3.5-5.1); SODIUM 156 mmol/L (135-144)
[2019-03-17] MEDS: LORAZEPAM 2 MG INJ IV (15:00)
[2019-03-17] MEDS: AMIKACIN 1,000 MG in DEXTROSE 5% 250 ML IVPB (17:50)
[2019-03-18] MEDS: ARTIFICIAL TEARS 15 ML OPH BOTH EYES ×5 (00:12→21:35)
[2019-03-18] MEDS: CIPROFLOXACIN 0.3% 2.5 ML OPH BOTH EYES ×3 (00:12→21:36)
[2019-03-18] MEDS: IPRATROPIUM (HFA) 12.9 GM INHALER INH ×6 (01:09→21:10)
[2019-03-18] MEDS: ALBUTEROL HFA 8 GM INHALER INH ×6 (01:10→21:10)
[2019-03-18] MEDS: DEXTROSE 5% 1,000 ML IV ×5 (05:29→23:30)
[2019-03-18] MEDS: FAMOTIDINE 20 MG INJ IV ×2 (09:04→21:41)
[2019-03-18] MEDS: LEVETIRACETAM 1000 MG (PMX) 100 ML IVPB ×2 (09:04→21:28)
[2019-03-18] MEDS: DOXYCYCLINE 100 MG in SOD CHLORIDE 0.9% 250 ML IVPB (09:14)
[2019-03-18] MEDS: VALPROATE INJ 500 MG in SOD CHLORIDE 0.9% 50 ML IVPB ×2 (10:23→21:52)
[2019-03-18] MEDS: POTASSIUM CHLORIDE (SR) 20 MEQ TAB PO (10:26)
[2019-03-18 15:23] LABS: ANION GAP 5 (5-13); BLOOD UREA NITROGEN 15 mg/dl (7-20); CALCIUM 7.9 mg/dl (8.4-10.2); CARBON DIOXIDE 30 mmol/L (21-31); CHLORIDE 114 mmol/L (97-110); CREATININE 1.32 mg/dl (0.61-1.24); Estimated GFR > 60 mL/min (>60); GLUCOSE 101 mg/dl (70-220); POTASSIUM 3.4 mmol/L (3.5-5.1); SODIUM 149 mmol/L (135-144)
[2019-03-18 15:59] LABS: VALPROATE 53 ug/ml (50-100)
[2019-03-18] MEDS: AMIKACIN 1,000 MG in DEXTROSE 5% 250 ML IVPB (16:05)
[2019-03-18] MEDS: ZYVOX 600 MG TAB PO (21:41)
[2019-03-19] MEDS: ALBUTEROL HFA 8 GM INHALER INH ×4 (01:26→13:00)
[2019-03-19] MEDS: IPRATROPIUM (HFA) 12.9 GM INHALER INH ×4 (01:26→13:00)
[2019-03-19] MEDS: DEXTROSE 5% 1,000 ML IV ×3 (03:40→10:11)
[2019-03-19 07:07] LABS: ADD MAN DIFF? NO
[2019-03-19 07:13] LABS: BASOPHILS % 0.4 % (0.0-2.0); EOSINOPHILS # 0.4 10^3/ul (0.0-0.5); EOSINOPHILS % 5.8 % (0.0-7.0); HEMATOCRIT 30.9 % (42.0-52.0); HEMOGLOBIN 9.3 g/dl (14.0-18.0); LYMPHOCYTES # 1.2 10^3/ul (0.8-2.9); LYMPHOCYTES % 16.6 % (15.0-51.0); MEAN CORPUSCULAR HEMOGLOBIN 26.6 pg (29.0-33.0); MEAN CORPUSCULAR HGB CONC 30.1 g/dl (32.0-37.0); MEAN CORPUSCULAR VOLUME 88.5 fl (82.0-101.0); MEAN PLATELET VOLUME 11.6 fl (7.4-10.4); MONOCYTE # 1.1 10^3/ul (0.3-0.9); NEUTROPHIL # 4.6 10^3/ul (1.6-7.5); NEUTROPHILS % 61.8 % (39.0-77.0); PLATELET COUNT 198 10^3/UL (140-415); RED BLOOD COUNT 3.49 10^6/ul (4.70-6.10); RED CELL DISTRIBUTION WIDTH 21.4 % (11.5-14.5)
[2019-03-19 07:13] LABS: WHITE BLOOD COUNT 7.4 10^3/ul (4.8-10.8)
[2019-03-19 07:38] LABS: ANION GAP 6 (5-13); BLOOD UREA NITROGEN 11 mg/dl (7-20); CALCIUM 7.8 mg/dl (8.4-10.2); CARBON DIOXIDE 30 mmol/L (21-31); CHLORIDE 107 mmol/L (97-110); CREATININE 0.81 mg/dl (0.61-1.24); Estimated GFR > 60 mL/min (>60); GLUCOSE 151 mg/dl (70-220); POTASSIUM 3.3 mmol/L (3.5-5.1); SODIUM 143 mmol/L (135-144)
[2019-03-19] MEDS: ZYVOX 600 MG TAB PO (09:40)
[2019-03-19] MEDS: LEVETIRACETAM 1000 MG (PMX) 100 ML IVPB (09:40)
[2019-03-19] MEDS: CIPROFLOXACIN 0.3% 2.5 ML OPH BOTH EYES (09:40)
[2019-03-19] MEDS: ARTIFICIAL TEARS 15 ML OPH BOTH EYES ×3 (09:40→16:52)
[2019-03-19] MEDS: FAMOTIDINE 20 MG INJ IV (09:40)
[2019-03-19] MEDS: POTASSIUM CHLORIDE (SR) 20 MEQ TAB PO (10:11)
[2019-03-19] MEDS: FLUCONAZOLE 100 MG TAB PO (13:09)
[2019-03-19] MEDS: VALPROATE INJ 500 MG in SOD CHLORIDE 0.9% 50 ML IVPB (14:08)
[2019-03-19] MEDS: AMIKACIN 1,000 MG in DEXTROSE 5% 250 ML IVPB (14:53)
== END 2019-03-19 17:25 | DRG 870 ==
LOC: TEL 03-17 19:55 → E/R 02:38 → TEL 04:09 → ICU 15:21
PROC: 5A1955Z Respiratory Ventilation, Greater than 96 Consecutive Hours (ICD-10-PCS; 2019-03-08)
PROC: 02HV33Z Insertion of Infusion Device into Superior Vena Cava, Percutaneous Approach (ICD-10-PCS; principal; 2019-03-09)
PROC: 30233N1 Transfusion of Nonautologous Red Blood Cells into Peripheral Vein, Percutaneous Approach (ICD-10-PCS; 2019-03-11)
PROC: 0W9930Z Drainage of Right Pleural Cavity with Drainage Device, Percutaneous Approach (ICD-10-PCS; 2019-03-12)
PROC: 0BJ08ZZ Inspection of Tracheobronchial Tree, Via Natural or Artificial Opening Endoscopic (ICD-10-PCS; 2019-03-16)
DX: A41.9 Sepsis, unspecified organism (principal); J96.21 Acute and chronic respiratory failure with hypoxia; J18.9 Pneumonia, unspecified organism; L89.893 Pressure ulcer of other site, stage 3; Z99.11 Dependence on respirator [ventilator] status; N39.0 Urinary tract infection, site not specified; G93.49 Other encephalopathy; J90 Pleural effusion, not elsewhere classified; K56.7 Ileus, unspecified; E87.0 Hyperosmolality and hypernatremia; N17.9 Acute kidney failure, unspecified; R13.10 Dysphagia, unspecified; I10 Essential (primary) hypertension; E86.0 Dehydration; R19.7 Diarrhea, unspecified; I69.198 Other sequelae of nontraumatic intracerebral hemorrhage; M24.452 Recurrent dislocation, left hip; L89.329 Pressure ulcer of left buttock, unspecified stage; D64.9 Anemia, unspecified; Z93.0 Tracheostomy status
CPT/HCPCS: 36415; 36430; 36569; 36600; 70450; 71045; 71250; 72170; 73500; 74018; 74176; 76604; 76937; 80048; 80053; 80061; 80150; 80164; 80202; 81001; 82803; 83036; 83605; 83690; 83735; 84100; 84443; 84484; 85018; 85025; 85049; 85610; 85670; 85730; 86140; 86850; 86900; 86901; 86920; 87040-91; 87045; 87070; 87075; 87081; 87086; 93005; 93306; 94002; 94003; 94640; 94664; 94668; 95819; 96374; 99285-25